=== PATIENT | female | born 1970 | race African-American/Black ===

== ENCOUNTER 2021-12-05 14:35 | Inpatient (IN) | payer MEDICAID ==
[~2021-12-05] VITALS: Ht 172.7 cm; Wt 100.3 kg
[2021-12-05] MEDS ORDERED: SODIUM CHLORIDE 0.9% 1,000 ML IV ONE (16:45)
[2021-12-05] MEDS ORDERED: MECLIZINE 25MG TABLET PO ONE (16:45)
[2021-12-05 17:04] LABS: BASOPHILS % 1.2 % (0.0-2.0); EOSINOPHILS % 5.7 % (0.0-5.0); HEMATOCRIT. 38.4 % (36.0-48.0); HEMOGLOBIN. 12.4 g/dL (12.0-16.0); LYMPHOCYTES % 35.4 % (20.0-50.0); MEAN CORPUSCULAR HEMOGLOBIN 26.5 pg (28.0-32.0); MEAN CORPUSCULAR VOLUME 82.2 fL (81.0-99.0); MEAN PLATELET VOLUME 6.7 fl (7.4-10.4); MONOCYTES % 11.5 % (2.0-8.0); NEUTROPHILS % 46.2 % (40.0-76.0); PLATELET 439 x1000/uL (130-400); RED BLOOD CELL COUNT 4.68 mill/uL (4.2-5.4); RED CELL DISTRIBUTION WIDTH 16.3 % (11.6-14.6)
[2021-12-05 17:16] LABS: CHLORIDE 106 mEq/L (98-107)
[2021-12-05 17:29] LABS: B-HCG QUANTITATIVE < 1 mIU/mL (<3)
[2021-12-05 17:46] LABS: CLARITY URINE CLEAR (CLEAR); COLOR URINE YELLOW (YELLOW); KETONES URINE TRACE (NEGATIVE); LEUKOCYTE ESTERASE URINE NEGATIVE (NEGATIVE); NITRITE URINE NEGATIVE (NEGATIVE); OCCULT BLOOD URINE NEGATIVE (NEGATIVE); PH URINE 5.5 (4.5-8.0); PROTEIN URINE NEGATIVE (NEGATIVE); SPECIFIC GRAVITY URINE 1.035 (1.005-1.030)
[2021-12-05] MEDS ORDERED: MORPHINE SULFATE 4 MG/ML CPJ (NOT FOR IM USE) IV ONE (20:30)
[2021-12-05] MEDS ORDERED: ONDANSETRON HCL 4MG/2ML INJ IV PRN (21:15)
[2021-12-05] MEDS ORDERED: ZOLPIDEM TARTRATE 5MG TABLET PO PRN (21:15)
[2021-12-05] MEDS ORDERED: NITROGLYCERIN 0.4MG TABLET SL SL PRN (21:15)
[2021-12-05] MEDS ORDERED: ACETAMINOPHEN 325MG TABLET PO PRN ×2 (21:15)
[2021-12-05] MEDS ORDERED: IPRATROPIUM/ALBUTEROL 0.5-3(2.5)MG/3ML NEB NEB PRN (21:15)
[2021-12-05] MEDS ORDERED: DOCUSATE SODIUM 100MG CAPSULE PO PRN (21:15)
[2021-12-05] MEDS ORDERED: ENOXAPARIN 40MG/0.4ML SYR SUBCUT SCH (21:15)
[2021-12-05] MEDS ORDERED: DIPHENHYDRAMINE 50MG/ML VIAL IV PRN (21:15)
[2021-12-05] MEDS ORDERED: GUAIFENESIN 200MG/10ML SUGAR FREE UDC PO PRN (21:15)
[2021-12-05] MEDS ORDERED: MAGNESIUM/ALUMINUM HYDROXIDE/SIMETHICONE 30ML UDC PO PRN (21:15)
[2021-12-05] MEDS ORDERED: CLONIDINE 0.1MG TABLET PO PRN (21:15)
[2021-12-05] MEDS: SODIUM CHLORIDE 0.9% 1,000 ML IV SCH (21:35)
[2021-12-05 21:46] LABS: AMYLASE 110 IU/L (25-115); ETHANOL BLOOD < 10 mg/dL
[2021-12-05 21:48] LABS: LDL CHOLESTEROL 157 mg/dL (5-100); TOTAL IRON BINDING CAPACITY 474 ug/dL (250-450)
[2021-12-05 21:51] LABS: HDL CHOLESTEROL 54 mg/dL (40-59)
[2021-12-05 22:09] LABS: FOLIC ACID (FOLATE) SERUM 7.8 ng/mL (>5.38)
[2021-12-06] MEDS: KETOROLAC 15MG/ML VIAL IV PRN ×3 (00:57→19:02)
[2021-12-06 05:57] LABS: BASOPHILS % 1.4 % (0.0-2.0); EOSINOPHILS % 6.5 % (0.0-5.0); HEMATOCRIT. 35.1 % (36.0-48.0); HEMOGLOBIN. 11.5 g/dL (12.0-16.0); LYMPHOCYTES % 40.1 % (20.0-50.0); MEAN CORPUSCULAR HEMOGLOBIN 26.6 pg (28.0-32.0); MEAN CORPUSCULAR VOLUME 81.2 fL (81.0-99.0); MEAN PLATELET VOLUME 6.9 fl (7.4-10.4); MONOCYTES % 11.4 % (2.0-8.0); NEUTROPHILS % 40.6 % (40.0-76.0); PLATELET 390 x1000/uL (130-400); RED BLOOD CELL COUNT 4.32 mill/uL (4.2-5.4); RED CELL DISTRIBUTION WIDTH 16.2 % (11.6-14.6)
[2021-12-06 06:19] LABS: AMYLASE 249 IU/L (25-115); CHLORIDE 110 mEq/L (98-107); PHOSPHORUS 2.8 mg/dL (2.5-4.9)
[2021-12-06] MEDS: SODIUM CHLORIDE 0.9% 1,000 ML IV SCH ×2 (07:15→19:03)
[2021-12-06 09:35] LABS: *AMPHETAMINES SCREEN URINE NEGATIVE (NEGATIVE); *BARBITURATES SCREEN URINE NEGATIVE (NEGATIVE); *BENZODIAZEPINES SCREEN URINE NEGATIVE (NEGATIVE); *COCAINE SCREEN URINE NEGATIVE (NEGATIVE); CANNABINOID URINE SCREEN PRESUMTIVE POSITIVE (NEGATIVE); METHADONE URINE SCREEN NEGATIVE (NEGATIVE); OPIATES URINE SCREEN NEGATIVE (NEGATIVE); PHENCYCLIDINE URINE SCREEN NEGATIVE (NEGATIVE)
[2021-12-06 10:00] VITALS: BP 144/80
[2021-12-06] MEDS: PANTOPRAZOLE SODIUM 40 MG/VIAL IV SCH (10:49)
[2021-12-06 12:00] VITALS: BP 118/50
[2021-12-06] MEDS ORDERED: MORPHINE SULFATE 2 MG/ML CPJ (NOT FOR IM USE) IV PRN (12:00)
[2021-12-06] MEDS ORDERED: IBUP-1653 MT (14:00)
[2021-12-06] MEDS ORDERED: PNEUMOCOCCAL VACCINE IM ONE (14:00)
[2021-12-06] MEDS ORDERED: ACET-2708 MT (14:01)
[2021-12-06 16:00] VITALS: BP 116/37
[2021-12-06] MEDS ORDERED: NALOXONE HCL 0.4MG/ML VIAL IV PRN (19:45)
[2021-12-06 20:00] VITALS: BP 107/40
[2021-12-06 20:07] VITALS: BP 144/80
[2021-12-06] MEDS: ENOXAPARIN 30MG/0.3ML SYR SUBCUT SCH (21:39)
[2021-12-06] MEDS: MORPHINE SULFATE 2 MG/ML CPJ (NOT FOR IM USE) IV PRN (22:23)
[2021-12-07] VITALS: BP 122/62
[2021-12-07 04:00] VITALS: BP 111/89
[2021-12-07] MEDS: SODIUM CHLORIDE 0.9% 1,000 ML IV SCH ×3 (05:38→23:15)
[2021-12-07] MEDS: MORPHINE SULFATE 2 MG/ML CPJ (NOT FOR IM USE) IV PRN ×2 (05:38→10:48)
[2021-12-07 07:14] LABS: HEPATITIS B SURFACE ANTIGEN NEGATIVE
[2021-12-07 08:00] VITALS: BP 109/58
[2021-12-07 10:38] LABS: CHLORIDE 111 mEq/L (98-107)
[2021-12-07] MEDS: ASCORBIC ACID 500 MG TABLET PO SCH (10:46)
[2021-12-07] MEDS: ASPIRIN 81MG TABLET PO SCH (10:46)
[2021-12-07] MEDS: FERROUS SULFATE 325MG TABLET PO SCH ×2 (10:46→17:56)
[2021-12-07] MEDS: ENOXAPARIN 30MG/0.3ML SYR SUBCUT SCH ×2 (10:47→22:18)
[2021-12-07] MEDS: PANTOPRAZOLE SODIUM 40 MG/VIAL IV SCH (10:47)
[2021-12-07 12:00] VITALS: BP 123/54
[2021-12-07 13:45] LABS: AMYLASE 57 IU/L (25-115)
[2021-12-07 16:00] VITALS: BP 132/59
[2021-12-07] MEDS: KETOROLAC 15MG/ML VIAL IV PRN (18:02)
[2021-12-07 20:00] VITALS: BP 119/52
[2021-12-08] VITALS: BP 128/58
[2021-12-08 04:00] VITALS: BP 118/61
[2021-12-08 08:00] VITALS: BP 129/65
[2021-12-08 08:06] LABS: AMYLASE 49 IU/L (25-115)
[2021-12-08] MEDS: PANTOPRAZOLE SODIUM 40 MG/VIAL IV SCH (08:27)
[2021-12-08] MEDS: ASCORBIC ACID 500 MG TABLET PO SCH (08:27)
[2021-12-08] MEDS: FERROUS SULFATE 325MG TABLET PO SCH (08:27)
[2021-12-08] MEDS: ASPIRIN 81MG TABLET PO SCH (08:27)
[2021-12-08] MEDS: KETOROLAC 15MG/ML VIAL IV PRN (08:29)
[2021-12-08] MEDS: ENOXAPARIN 30MG/0.3ML SYR SUBCUT SCH (08:29)
[2021-12-08 08:52] VITALS: BP 129/65
== END 2021-12-08 09:30 | disposition home or self-care (01) | DRG 282 ==
LOC: ER 14:35 → MICUSO 20:29 → 8WST 12-06 09:33
PROVIDERS: ADMIT Internal Medicine; ATTEND Internal Medicine
DX: K85.90 Acute pancreatitis without necrosis or infection, unspecified (principal); E44.0 Moderate protein-calorie malnutrition; I50.32 Chronic diastolic (congestive) heart failure; K83.8 Other specified diseases of biliary tract; R16.0 Hepatomegaly, not elsewhere classified; R18.8 Other ascites; I11.0 Hypertensive heart disease with heart failure; K40.20 Bilateral inguinal hernia, without obstruction or gangrene, not specified as recurrent; K57.30 Diverticulosis of large intestine without perforation or abscess without bleeding; E78.5 Hyperlipidemia, unspecified; E78.1 Pure hyperglyceridemia; E66.9 Obesity, unspecified; J45.909 Unspecified asthma, uncomplicated; D25.9 Leiomyoma of uterus, unspecified; E78.00 Pure hypercholesterolemia, unspecified; R00.1 Bradycardia, unspecified; Z20.822 Contact with and (suspected) exposure to COVID-19; F12.10 Cannabis abuse, uncomplicated; F17.210 Nicotine dependence, cigarettes, uncomplicated; I25.10 Atherosclerotic heart disease of native coronary artery without angina pectoris; M19.90 Unspecified osteoarthritis, unspecified site; Z95.5 Presence of coronary angioplasty implant and graft; Z79.899 Other long term (current) drug therapy; Z71.3 Dietary counseling and surveillance; Z71.51 Drug abuse counseling and surveillance of drug abuser; Z82.3 Family history of stroke; Z68.33 Body mass index [BMI] 33.0-33.9, adult
CPT/HCPCS: 36415; 70551; 74176; 74181; 76700; 80048; 80053; 80061; 80076; 80305; 80320; 81003; 82150; 82607; 82746; 83036; 83540; 83550; 83735; 84100; 84443; 84484; 84702; 85025; 86705; 86709; 86803; 87340; 87426; 93005; 93306; 93970; 99285; C9113; J1650; J1885; J2270; J2405; J7030; J8597; G0480

== ENCOUNTER 2024-06-02 12:45 | Emergency (ER) | payer SELFPAY ==
[~2024-06-02] VITALS: Ht 172.7 cm; Wt 103.0 kg
[~2024-06-02 12:45] MED LIST: ACET-2708 MT; IBUP-1653 MT
[2024-06-02 12:52] VITALS: TEMP 99; O2SAT 100
[2024-06-02 14:55] LABS: BASOPHILS % 0.2 % (0.0-2.0); HEMATOCRIT. 47.4 % (36.0-48.0); HEMOGLOBIN. 15.5 g/dL (12.0-16.0); LYMPHOCYTES % 10.4 % (20.0-50.0); MEAN CORPUSCULAR HEMOGLOBIN 29.4 pg (28.0-32.0); MEAN CORPUSCULAR HGB CONC 32.7 g/dL (31.0-37.0); MEAN CORPUSCULAR VOLUME 89.9 fL (81.0-99.0); MEAN PLATELET VOLUME 6.8 fl (7.4-10.4); MONOCYTES % 5.5 % (2.0-8.0); NEUTROPHILS % 82.9 % (40.0-76.0); PLATELET 329 x1000/uL (130-400); RED BLOOD CELL COUNT 5.28 mill/uL (4.2-5.4); RED CELL DISTRIBUTION WIDTH 13.4 % (11.6-14.6); WHITE BLOOD COUNT 9.1 x1000/uL (4.5-11.0)
[2024-06-02 14:57] LABS: CLARITY URINE CLEAR (CLEAR); COLOR URINE YELLOW (YELLOW); GLUCOSE URINE NEGATIVE (NEGATIVE); KETONES URINE NEGATIVE (NEGATIVE); LEUKOCYTE ESTERASE URINE NEGATIVE (NEGATIVE); NITRITE URINE NEGATIVE (NEGATIVE); OCCULT BLOOD URINE NEGATIVE (NEGATIVE); PROTEIN URINE NEGATIVE (NEGATIVE); SPECIFIC GRAVITY URINE 1.028 (1.005-1.030)
[2024-06-02 14:59] LABS: CHLORIDE 105 mEq/L (98-107); POTASSIUM 4.1 mEq/L (3.5-5.1); SODIUM 139 mEq/L (136-145)
[2024-06-02 15:00] LABS: CARBON DIOXIDE 30 mEq/L (21-32)
[2024-06-02 15:01] LABS: CALCIUM 10.2 mg/dL (8.7-10.4)
[2024-06-02 15:03] LABS: HCG SCREEN NEGATIVE
[2024-06-02 15:05] LABS: GLUCOSE 86 mg/dL (70-105); UREA NITROGEN BLOOD 10 mg/dL (9-23)
[2024-06-02 15:07] LABS: ALANINE AMINOTRANSFERASE 16 IU/L (10-49); ALBUMIN 4.9 g/dL (3.2-4.8); ASPARTATE AMINOTRANSFERASE 17 IU/L (<34)
[2024-06-02 15:08] LABS: BILIRUBIN DIRECT 0.1 mg/dL (<=3.0); BILIRUBIN TOTAL 0.5 mg/dL (0.1-1.0); PROTEIN TOTAL 8.1 g/dL (6.0-8.3)
[2024-06-02] MEDS: KETOROLAC 30MG/ML VIAL IM ONE (15:35)
[2024-06-02] MEDS ORDERED: METR-167 MT (15:56)
[2024-06-02] MEDS ORDERED: CIPR500S3 PO (15:56)
[2024-06-02] MEDS ORDERED: TRAM50TA3 MT (16:02)
[2024-06-02] MEDS ORDERED: CIPR-263 MT (16:03)
[2024-06-02] MEDS ORDERED: TOPUD PO (16:05)
[2024-06-02 16:21] VITALS: BP 105/55; PULSE 78; RESP 16; O2SAT 100
== END 2024-06-02 16:10 | disposition home or self-care (01) ==
LOC: ER 12:45
DX: R11.2 Nausea with vomiting, unspecified (principal); R10.30 Lower abdominal pain, unspecified; J45.909 Unspecified asthma, uncomplicated; Z90.710 Acquired absence of both cervix and uterus
CPT/HCPCS: 99285; 74176; 80076; 80048; 81003; 81025; 84703; 85025; 36415; 96372; J1885

== ENCOUNTER 2025-04-25 12:02 | Emergency (ER) | payer MEDICAID ==
[~2025-04-25] VITALS: Ht 172.7 cm; Wt 103.0 kg
[~2025-04-25 12:02] MED LIST changes: +CIPR-263 MT; +METR-167 MT; +TOPUD PO
[2025-04-25 12:07] VITALS: O2SAT 99
[2025-04-25 13:06] LABS: BASOPHILS % 1.1 % (0.0-2.0); EOSINOPHILS % 6.8 % (0.0-5.0); HEMATOCRIT. 45.4 % (36.0-48.0); HEMOGLOBIN. 15.3 g/dL (12.0-16.0); LYMPHOCYTES % 35.6 % (20.0-50.0); MEAN PLATELET VOLUME 6.8 fl (7.4-10.4); MONOCYTES % 9.7 % (2.0-8.0); NEUTROPHILS % 46.8 % (40.0-76.0); PLATELET 364 x1000/uL (130-400); RED BLOOD CELL COUNT 5.10 mill/uL (4.2-5.4); RED CELL DISTRIBUTION WIDTH 13.1 % (11.6-14.6)
[2025-04-25 13:20] LABS: CREATININE 1.0 mg/dL (0.6-1.0)
[2025-04-25 13:21] LABS: UREA NITROGEN BLOOD 10 mg/dL (9-23)
[2025-04-25 13:22] LABS: ASPARTATE AMINOTRANSFERASE 17 IU/L (<34); TROPONIN I HIGH SENSITIVITY < 4 ng/L (3.0-34)
[2025-04-25 13:23] LABS: BILIRUBIN DIRECT < 0.1 mg/dL (<=3.0); BILIRUBIN TOTAL 0.4 mg/dL (0.1-1.0); PROTEIN TOTAL 7.0 g/dL (6.0-8.3)
[2025-04-25 15:25] VITALS: BP 119/68; PULSE 67; RESP 16; TEMP 37; O2SAT 100
[2025-04-25] MEDS ORDERED: ALBU18HF2 IH (15:34)
[2025-04-25 15:54] LABS: TROPONIN I HIGH SENSITIVITY < 4 ng/L (3.0-34)
== END 2025-04-25 15:30 | disposition home or self-care (01) ==
LOC: ER 12:02 → CANBEDREQ 15:09 → ER 15:30
DX: R07.89 Other chest pain (principal); E78.5 Hyperlipidemia, unspecified; I10 Essential (primary) hypertension; J45.909 Unspecified asthma, uncomplicated; F12.90 Cannabis use, unspecified, uncomplicated; Z87.891 Personal history of nicotine dependence; Z90.710 Acquired absence of both cervix and uterus
CPT/HCPCS: 36415; 71045; 80048; 80076; 83735; 84484; 85025; 93005; 99285